=== PATIENT | female | born 1945 | race American Indian/Alaskan Native ===

== ENCOUNTER 2021-09-03 11:22 | Emergency (ER) | payer MEDICARE, MEDICAID ==
[2021-09-03] MEDS ORDERED: ONDANSETRON 4 MG/2 ML INJ IV ONE (13:20)
--- NOTE | 2021-09-03 13:20 | Event Note ---
ED Screening Note ED Screening Note: 75 yo comes to ER with llq pain and vomiting started yesterday; worse today went to clinic and they sent her here I found her hunched over trash can pos fatigue no sob no cp pos weak pos chills normal bm this am- no blood pmh cad/cabg/stents hysterectomy lung ca/resection 3 y ago smoker dm2 daily meds- she can not recall except for asa 81 This initial assessment/diagnostic orders/clinical plan/treatment(s) is/are subject to change based on patients health status, clinical progression and re-assessment by fellow clinical providers in the ED. Further treatment and workup at subsequent clinical providers discretion. Patient/guardian urged not to elope from the ED as their condition may be serious if not clinically assessed and managed. Initial orders include: ro atypical acs/ abd etio
[2021-09-03 13:57] LABS: Basophils # (Auto) 0.1 K/mm3 (0.0-0.1); Basophils % (Auto) 0.5 % (0.0-1.8); Eosinophils % (Auto) 0.3 % (0.0-4.3); Hematocrit 42.1 % (30.3-42.9); Hemoglobin 13.9 gm/dl (10.1-14.3); Lymphocytes # (Auto) 2.6 K/mm3 (1.2-5.4); Lymphocytes % (Auto) 20.9 % (13.4-35.0); Mean Corpuscular HGB Conc 33 % (30-34); Mean Corpuscular Volume 93 fl (79-97); Monocytes # (Auto) 1.3 K/mm3 (0.0-0.8); Monocytes % (Auto) 10.8 % (0.0-7.3); Platelet Count 260 K/mm3 (140-440); Red Blood Count 4.52 M/mm3 (3.65-5.03); Red Cell Distribution Width 12.8 % (13.2-15.2)
[2021-09-03] MEDS ORDERED: SODIUM CHLORIDE 0.9% 500 ML 500 ML IV SCH (14:00)
[2021-09-03] MEDS ORDERED: MORPHINE 4 MG/1 ML INJ IV ONE (14:08)
--- NOTE | 2021-09-03 14:12 | Emergency Department Report ---
ED General Adult HPI - General Chief complaint: Abdominal Pain Stated complaint: STOMACH PAIN Time Seen by Provider: 09/03/21 13:58 Source: patient Mode of arrival: Ambulatory Limitations: Physical Limitation - History of Present Illness Initial comments: Patient presents with complaints of left lower abdominal pain, sharp, non radiating, 10/10, not worsened or relieved by anything. Endorses nausea, denies vomiting. Last BM was today and formed. Endorses flatulence. Denies dysuria but reports frequency, urgency. Denies vaginal bleeding, discharge. - Related Data Previous Rx's Medication Instructions Recorded Last Taken Type Acetaminophen/Codeine [Tylenol 1 tab PO Q6H PRN 3 Days #12 tab 09/03/21 Unknown Rx /Codeine # 3 tab] Ciprofloxacin HCl 1 tab PO BID 7 Days #14 tab 09/03/21 Unknown Rx Metoclopramide [Reglan ORAL LIQ] 10 mg PO Q6H PRN #30 tab 09/03/21 Unknown Rx metroNIDAZOLE [Flagyl TAB] 1 tab PO Q8H 7 Days #21 tab 09/03/21 Unknown Rx Allergies Allergy/AdvReac Type Severity Reaction Status Date / Time Penicillins Allergy Hives Verified 09/03/21 13:10 ED Review of Systems ROS: Stated complaint: STOMACH PAIN Other details as noted in HPI Comment: All other systems reviewed and negative Constitutional: denies: chills, fever ED Past Medical Hx - Past Medical History Hx Hypertension: Yes Hx CVA: Yes Hx Diabetes: Yes Hx of Cancer: Yes Additional medical history: diverticulitis - Surgical History Hx Open Heart Surgery: Yes Hx Cholecystectomy: Yes Additional Surgical History: lobectomy - Medications Home Medications: Home Medications Medication Instructions Recorded Confirmed Last Taken Type Acetaminophen/Codeine [Tylenol 1 tab PO Q6H PRN 3 Days #12 tab 09/03/21 Unknown Rx /Codeine # 3 tab] Ciprofloxacin HCl 1 tab PO BID 7 Days #14 tab 09/03/21 Unknown Rx Metoclopramide [Reglan ORAL LIQ] 10 mg PO Q6H PRN #30 tab 09/03/21 Unknown Rx metroNIDAZOLE [Flagyl TAB] 1 tab PO Q8H 7 Days #21 tab 09/03/21 Unknown Rx ED Physical Exam - General Limitations: Physical Limitation General appearance: alert, in no apparent distress - Head Head exam: Present: atraumatic, normocephalic - Eye Eye exam: Present: PERRL, EOMI - ENT ENT exam: Present: mucous membranes moist, other (airway patent) - Neck Neck exam: Present: other (supple; no JVP) - Respiratory Respiratory exam: Present: other (good air entry, nml I:E, CTAB, no use of AARTI) - Cardiovascular Cardiovascular Exam: Present: regular rate. Absent: rubs, gallop - GI/Abdominal GI/Abdominal exam: Present: soft, other (tender to palpation in epigastric, periumbilical regions, LUQ and L flank). Absent: rebound - Extremities Exam Extremities exam: Present: full ROM. Absent: pedal edema, calf tenderness - Back Exam Back exam: Present: full ROM, CVA tenderness (L). Absent: CVA tenderness (R) - Neurological Exam Neurological exam: Present: alert, oriented X3, CN II-XII intact. Absent: motor sensory deficit - Skin Skin exam: Present: normal color. Absent: rash ED Course Vital Signs 09/03/21 09/03/21 09/03/21 13:07 14:33 14:43 Temperature 97.7 F Pulse Rate 68 73 Respiratory 17 20 17 Rate Blood Pressure 127/60 O2 Sat by Pulse 97 100 100 Oximetry 09/03/21 09/03/21 09/03/21 14:54 15:00 15:20 Temperature Pulse Rate 125 H 75 70 Respiratory 22 24 25 H Rate Blood Pressure 127/62 142/55 154/58 O2 Sat by Pulse 98 97 96 Oximetry 09/03/21 09/03/21 09/03/21 15:30 15:46 16:00 Temperature Pulse Rate 71 67 70 Respiratory 15 15 20 Rate Blood Pressure 148/63 124/67 132/59 O2 Sat by Pulse 95 93 92 Oximetry 09/03/21 09/03/21 09/03/21 16:16 16:30 16:46 Temperature Pulse Rate 77 73 66 Respiratory 19 17 19 Rate Blood Pressure 137/56 133/66 128/56 O2 Sat by Pulse 94 97 97 Oximetry ED Medical Decision Making - Lab Data Result diagrams: 09/03/21 13:26 09/03/21 13:26 Laboratory Tests 09/03/21 09/03/21 09/03/21 13:26 13:26 13:26 WBC 12.5 H RBC 4.52 Hgb 13.9 Hct 42.1 MCV 93 MCH 31 MCHC 33 RDW 12.8 L Plt Count 260 Lymph % (Auto) 20.9 [place] % (Auto) 10.8 H Eos % (Auto) 0.3 Baso % (Auto) 0.5 Lymph # (Auto) 2.6 [place] # (Auto) 1.3 H Eos # (Auto) 0.0 Baso # (Auto) 0.1 Seg Neutrophils % 67.5 Seg Neutrophils # 8.4 H Sodium 143 Potassium 4.1 Chloride 105.1 Carbon Dioxide 25 Anion Gap 17 BUN 14 Creatinine 1.1 Estimated GFR 59 BUN/Creatinine Ratio 13 Glucose 136 H Calcium 10.4 H Total Bilirubin 1.00 Direct Bilirubin 0.3 H Indirect Bilirubin 0.7 AST 20 ALT 15 Alkaline Phosphatase 97 Troponin T < 0.010 Total Protein 7.7 Albumin 4.6 Albumin/Globulin Ratio 1.5 Lipase 14 Urine Color Urine Turbidity Urine pH Ur Specific [place] Urine Protein Urine Glucose (UA) Urine Ketones Urine Blood Urine Nitrite Urine Bilirubin Urine Urobilinogen Ur Leukocyte Esterase Urine WBC (Auto) Urine RBC (Auto) U Epithel Cells (Auto) Urine Mucus Ur Yeast w Hyphae Urine Yeast (Budding) 09/03/21 Unknown WBC RBC Hgb Hct MCV MCH MCHC RDW Plt Count Lymph % (Auto) [place] % (Auto) Eos % (Auto) Baso % (Auto) Lymph # (Auto) [place] # (Auto) Eos # (Auto) Baso # (Auto) Seg Neutrophils % Seg Neutrophils # Sodium Potassium Chloride Carbon Dioxide Anion Gap BUN Creatinine Estimated GFR BUN/Creatinine Ratio Glucose Calcium Total Bilirubin Direct Bilirubin Indirect Bilirubin AST ALT Alkaline Phosphatase Troponin T Total Protein Albumin Albumin/Globulin Ratio Lipase Urine Color Yellow Urine Turbidity Clear Urine pH 6.0 Ur Specific [place] 1.048 H Urine Protein <15 mg/dl Urine Glucose (UA) >=500 Urine Ketones Neg Urine Blood Neg Urine Nitrite Neg Urine Bilirubin Neg Urine Urobilinogen 2.0 Ur Leukocyte Esterase Neg Urine WBC (Auto) 3.0 Urine RBC (Auto) 1.0 U Epithel Cells (Auto) 6.0 Urine Mucus Few Ur Yeast w Hyphae 1+ Urine Yeast (Budding) Few CT abd/pelvis: uncomplicated proximal diverticulitis (per radiology) - Medical Decision Making Diff dz: likely 2/2 diverticulitis. No signs of pyelonephritis, ureterolithiasis, SBO or other acute surgical abdomen at this time. Received morphine 4 mg IV x 1, zofran 4 mg IV x 1. Pain resolved. RR 18, HR 78 Critical care attestation.: If time is entered above; I have spent that time in minutes in the direct care of this critically ill patient, excluding procedure time. ED Disposition Clinical Impression: Diverticulitis Disposition: HOME / SELF CARE / HOMELESS Is pt being admited?: No Does the pt Need Aspirin: No Condition: Stable Instructions: Diverticulitis, [id number], Abdominal Pain (ED) Additional Instructions: Return to the ER if your symptoms worsen Prescriptions: Ciprofloxacin HCl 1 tab PO BID 7 Days #14 tab metroNIDAZOLE [Flagyl TAB] 1 tab PO Q8H 7 Days #21 tab Metoclopramide [Reglan ORAL LIQ] 10 mg PO Q6H PRN #30 tab PRN Reason: Nausea And Vomiting Acetaminophen/Codeine [Tylenol /Codeine # 3 tab] 1 tab PO Q6H PRN 3 Days #12 tab PRN Reason: Pain , Severe (7-10) Referrals: ROCCO CINTRON MD [Primary Care Provider] - 3-5 Days Time of Disposition: 16:00 ([facility] data reviewed. no controlled substaqnces prescribed to patient in past 2 years)
[2021-09-03 14:24] LABS: Albumin 4.6 g/dL (3.9-5); Bilirubin,Direct 0.3 mg/dL (0-0.2); Calcium 10.4 mg/dL (8.4-10.2)
--- NOTE | 2021-09-03 15:23 | Cat Scan Report ---
CT ABDOMEN AND PELVIS WITH CONTRAST HISTORY: abd pain 100 ml omni 300 . COMPARISON: None. TECHNIQUE: CT images of the abdomen and pelvis were obtained following administration of intravenous contrast. All CT scans at this location are performed using CT dose reduction for ALARA by means of automated exposure control. CONTRAST: 100 ml of intravenous contrast administered. FINDINGS: Lungs/bones: Lung bases are clear. There are degenerative changes in the spine and the pelvis with n o acute osseous abnormality identified. Abdomen/pelvis: There is colonic diverticulosis with mild wall thickening and inflammatory change in the proximal sigmoid colon in the left lower quadrant. There is no bowel obstruction. No evidence of perforation such as abscess formation or free air. Gallbladder is surgically absent. The liver, spleen, pancreas, adrenals, and proximal GI tract appear unremarkable. There are simple bilateral renal cysts. Moderate atelectatic disease is present throug hout the abdominal aorta and the branch vessels. A pessary device is in place. Uterus is unremarkable. No pelvic free fluid. IMPRESSION: 1. Acute uncomplicated proximal sigmoid diverticulitis. Signer Name: Bobby Estevez MD Signed: 09/03/2021 3:19 PM Workstation Name: [id number]
[2021-09-03 15:47] LABS: Bilirubin,Urine NEG (Negative); Blood,Urine NEG (Negative); Color,Urine Yellow (Yellow); Mucus,Urine FEW /HPF; Protein,Urine <15 mg/dL mg/dL (Negative)
[2021-09-03 17:22] VITALS: BP 128/56
== END 2021-09-03 17:22 | disposition home or self-care (01) ==
LOC: ED 11:22
DX: K57.92 Diverticulitis of intestine, part unspecified, without perforation or abscess without bleeding (principal); I10 Essential (primary) hypertension; E11.9 Type 2 diabetes mellitus without complications; Z86.73 Personal history of transient ischemic attack (TIA), and cerebral infarction without residual deficits; Z85.9 Personal history of malignant neoplasm, unspecified; Z90.49 Acquired absence of other specified parts of digestive tract; Z88.0 Allergy status to penicillin
CPT/HCPCS: 36415; 74177; 80048; 80076; 81001; 83690; 84484; 85025; 96374; 96375; 99284; J2270; J2405; J7040; Q9967